=== PATIENT | male | born 1990 | race Caucasian/White ===

== ENCOUNTER 2017-09-25 02:27 | Emergency (ER) | payer MEDICAID ==
[~2017-09-25] VITALS: Ht 167.6 cm; Wt 87.0 kg
[~2017-09-25 02:27] MED LIST: FLUC100T9 PO; LACT1CAP26 PO; NO HOME MEDS
[2017-09-25] MEDS ORDERED: normal saline 1000ML IV soln IV ONE (03:15)
[2017-09-25] MEDS ORDERED: ampicillin inj 2 GM in normal saline 100ml IV soln 100 ML IV ONE (04:00)
[2017-09-25 04:07] LABS: BASOPHILS % (AUTO) 0.4 % (0-1); EOSINOPHILS # (AUTO) 1.1 X10'3 (0-0.9); EOSINOPHILS % (AUTO) 14.7 % (0-6); HEMATOCRIT 29.7 % (42.0-52.0); LYMPHOCYTES % (AUTO) 25.5 % (21-51); MEAN CORPUSCULAR HEMOGLOBIN 27.4 PG (27.0-31.0); MEAN CORPUSCULAR HGB CONC 33.7 % (33.0-36.5); MEAN CORPUSCULAR VOLUME 81.4 FL (78-98); MEAN PLATELET VOLUME 7.6 FL (7.4-10.4); MONOCYTES # (AUTO) 0.7 X10'3 (0-0.9); NEUTROPHILS # (AUTO) 3.9 X10'3 (1.8-7.7); NEUTROPHILS % (AUTO) 50.4 % (42-75); PLATELET COUNT 283 X10'3 (140-440); RED BLOOD COUNT 3.66 X10'6 (4.70-6.10); WHITE BLOOD COUNT 7.8 X10'3 (4.5-11.0)
[2017-09-25 04:21] LABS: INR 1.2 INR; PARTIAL THROMBOPLASTIN TIME 25 SECONDS (22-32)
[2017-09-25 04:25] LABS: ALANINE AMINOTRANSFERASE 35 U/L (12-78); ALBUMIN 2.9 G/DL (3.4-5.0); ALBUMIN/GLOBULIN RATIO 0.6 (1.1-1.5); ALKALINE PHOSPHATASE 70 IU/L (46-116); ANION GAP 7 (8-16); ASPARTATE AMINO TRANSFERASE 21 U/L (10-37); BILIRUBIN,TOTAL 0.3 MG/DL (0.1-1.0); BLOOD UREA NITROGEN 16 MG/DL (7-18); BUN/CREATININE RATIO 12.7 (5.4-32.0); CALCIUM 8.5 MG/DL (8.5-10.1); CHLORIDE 102 MMOL/L (99-107); CREATININE 1.26 MG/DL (0.60-1.10); MAGNESIUM 2.2 MG/DL (1.5-2.4); SODIUM 137 MMOL/L (135-145); TOTAL CARBON DIOXIDE 28.3 MMOL/L (24-32); TOTAL PROTEIN 7.7 G/DL (6.4-8.2); eGFR 68 ML/MIN
[2017-09-25 04:26] LABS: GLUCOSE 104 MG/DL (70-104)
[2017-09-25] MEDS ORDERED: ampicillin inj 1 GM in normal saline 100ml IV soln 100 ML IV SCH (04:55)
[2017-09-25 05:47] LABS: CLARITY,URINE CLEAR (Clear); COLOR,URINE YELLOW (Yellow); GLUCOSE, URINE NEGATIVE (Neg); KETONES,URINE NEGATIVE (Neg); LEUKOCYTE ESTERASE ,URINE NEGATIVE (Neg); NITRITES, URINE NEGATIVE (Neg); OCCULT BLOOD,URINE NEGATIVE (Neg); PROTEIN,URINE NEGATIVE (Neg); UROBILINOGEN,URINE 0.2 E.U/dL (0.2-1.0)
[2017-09-25 05:48] LABS: UA COLLECTION TYPE CLN CATCH MIDSTREAM
[2017-09-25 05:58] LABS: URINE AMPHETAMINE SCREEN NEGATIVE (Neg); URINE BARBITUATE SCREEN NEGATIVE (Neg); URINE BENZODIAZEPINES SCREEN NEGATIVE (Neg); URINE CANNABINOID SCREEN NEGATIVE (Neg); URINE COCAINE SCREEN POSITIVE (Neg); URINE METHADONE SCREEN NEGATIVE (Neg); URINE OPIATE SCREEN POSITIVE (Neg); URINE PHENCYCLIDINE SCREEN NEGATIVE (Neg)
[2017-09-25] MEDS: ampicillin inj 2 GM in normal saline 100ml IV soln 100 ML IV SCH ×2 (09:45→12:00)
[2017-09-25] MEDS ORDERED: methadone 10mg tablet PO ONE (11:55)
[2017-09-25 12:51] VITALS: BP 115/76
== END 2017-09-25 14:31 ==
LOC: ER 02:28
DX: I38 Endocarditis, valve unspecified (principal); F11.10 Opioid abuse, uncomplicated; F15.10 Other stimulant abuse, uncomplicated; Z56.0 Unemployment, unspecified; Z88.2 Allergy status to sulfonamides
CPT/HCPCS: 36415; 71045; 80053; 80305; 81003; 83605; 83735; 84145; 85025; 85610; 85730; 87040; 87077; 87186; 93005; 96361; 96365; 96366; 99285; J0290; J7030

== ENCOUNTER 2018-09-06 13:13 | Emergency (ER) | payer MEDICAID ==
[~2018-09-06] VITALS: Ht 167.6 cm; Wt 81.8 kg
[~2018-09-06 13:13] MED LIST changes: -DOXY100C2 PO
[2018-09-06 13:43] VITALS: BP 120/70
[2018-09-06] MEDS ORDERED: DOXYCYCLINE 100MG CAPSULE PO STA ×2 (13:45→13:46)
[2018-09-06] MEDS ORDERED: CefTRIAXone 1000mg IM Kit (w/lidocaine diluent) IM ONE (13:50)
[2018-09-06] MEDS ORDERED: DOXY100C2 PO (13:59)
== END 2018-09-06 14:13 ==
LOC: ER 13:14
DX: L03.116 Cellulitis of left lower limb (principal); L03.115 Cellulitis of right lower limb; K59.00 Constipation, unspecified; F11.10 Opioid abuse, uncomplicated; F12.90 Cannabis use, unspecified, uncomplicated; Z56.0 Unemployment, unspecified; Z88.2 Allergy status to sulfonamides
CPT/HCPCS: 74018; 96372; 99283; J0696

== ENCOUNTER → 2018-09-06 | Emergency (ER) | payer MEDICAID ==
[~2018-09-06] VITALS: Ht 170.2 cm; Wt 90.0 kg
[~2018-09-06] MED LIST changes: +DOXY100C2 PO
[2018-09-06 12:21] VITALS: BP 146/103
== END ==
LOC: ER 12:08
DX: M79.89 Other specified soft tissue disorders (principal); Z02.89 Encounter for other administrative examinations; F15.10 Other stimulant abuse, uncomplicated; F11.90 Opioid use, unspecified, uncomplicated; Z88.2 Allergy status to sulfonamides; Z79.899 Other long term (current) drug therapy; Z56.0 Unemployment, unspecified
CPT/HCPCS: 99283

== ENCOUNTER 2019-02-23 10:48 | Emergency (ER) | payer MEDICAID | END 2019-02-23 12:16 | disposition left against medical advice (07) | LOC: ER 10:49 | DX: L98.9 Disorder of the skin and subcutaneous tissue, unspecified (principal); Z53.21 Procedure and treatment not carried out due to patient leaving prior to being seen by health care provider ==